=== PATIENT | female | born 1960 ===

== ENCOUNTER 2017-07-24 09:30 | Outpatient (CLI) | payer OTHER ==
[~2017-07-24 09:30] MED LIST: ASA325 M1; CRESTOR40 MG; KETO10TA2 PO; NABUMETONE500 MG PO; PEPCID20 MG PO; PERCOCET 5/3251 TAB PO; SYNTHROID88 MCG; TOPROL XL100 MG; TUSNEL LIQUID178 ML PO
== END 2017-07-24 15:15 | disposition home or self-care (01) ==
LOC: MRI 09:30
DX: M23.92 Unspecified internal derangement of left knee (principal)
CPT/HCPCS: 73721